=== PATIENT | female | born 2000 | race American Indian/Alaskan Native ===

== ENCOUNTER 2024-11-09 16:09 | Emergency (ER) | payer MEDICAID ==
[~2024-11-09] VITALS: Ht 170.2 cm; Wt 109.7 kg
[~2024-11-09 16:09] MED LIST: AMOX-580 PO; CETI10TA15 PO; DOCU-28 PO; HYDR-3972 PO
[2024-11-09 16:13] VITALS: BP 139/98; PULSE 87; RESP 16; O2SAT 99
[2024-11-09 18:56] VITALS: TEMP 98
== END 2024-11-09 18:57 | disposition home or self-care (01) ==
LOC: ER 16:10
DX: S86.911A Strain of unspecified muscle(s) and tendon(s) at lower leg level, right leg, initial encounter (principal); S90.31XA Contusion of right foot, initial encounter; E78.00 Pure hypercholesterolemia, unspecified; X58.XXXA Exposure to other specified factors, initial encounter; Y93.89 Activity, other specified; Y92.89 Other specified places as the place of occurrence of the external cause; Y99.8 Other external cause status
CPT/HCPCS: 99281